=== PATIENT | male | born 2000 | race Two or more races ===

== ENCOUNTER 2019-04-20 21:26 | Emergency (ER) | payer SELFPAY ==
[~2019-04-20] VITALS: Ht 170.2 cm; Wt 84.4 kg
--- NOTE | 2019-04-20 21:52 | NUR ---
YANELY FROM HOME. TO ER BED 14. ALERT, AWAKE AND ORIENTED. NO RESPD DISTRESS. ANXIOUS. C/O PARANOIA. PT REPORTS THAT HE TOOK 3 UNKNOWN DOSAGE OF EDIBLE MARIJUANA FOR HE FIRST TIME AND NOW FEELING PARANOID. NO MEDICAL COMPLAINT. DENIES PAIN. MD AT BEDSIDE FOR EVAL. WILL CONTINUE TO MONITOR
--- NOTE | 2019-04-20 22:59 | NUR ---
PT IN BED SLEEPING. NAD NOTED.
[2019-04-21] MEDS ORDERED: LORAZEPAM INJ 2 MG/ML VIAL IM ONE (02:30)
--- NOTE | 2019-04-21 03:40 | NUR ---
PT AMBULATED TO BATHROOM ON STEADY GAIT WITHOUT ASSIST
--- NOTE | 2019-04-21 03:59 | NUR ---
Patient discharged to home in stable condition. Written and verbal after care instructions given. Patient verbalizes understanding of instruction. Pt ambulatory with a steady gait. Pt provided with tap card d/t pt have no wallet and cellphone. pt was brought in by RA.
[2019-04-21 04:01] VITALS: BP 134/86
== END 2019-04-21 04:01 | disposition home or self-care (01) ==
LOC: ER 21:26
DX: F12.929 Cannabis use, unspecified with intoxication, unspecified (principal); E11.9 Type 2 diabetes mellitus without complications